=== PATIENT | female | born 1955 | race Caucasian/White ===

== ENCOUNTER 2019-02-17 13:23 | Emergency (ER) | payer OTHER ==
[~2019-02-17] VITALS: Ht 167.6 cm; Wt 112.5 kg
[~2019-02-17 13:23] MED LIST: BETAMETHASONE D TP; FLUOCINONIDE0.05% T; KETOCONAZOLE S120 M1 TP
[2019-02-17] MEDS ORDERED: NAPROSYN500 MG PO (15:15)
== END 2019-02-17 15:20 | disposition home or self-care (01) ==
LOC: ED 13:23
DX: S63.501A Unspecified sprain of right wrist, initial encounter (principal); Z79.899 Other long term (current) drug therapy; X58.XXXA Exposure to other specified factors, initial encounter; Y93.89 Activity, other specified; Y92.89 Other specified places as the place of occurrence of the external cause; Y99.8 Other external cause status

== ENCOUNTER 2023-10-22 09:50 | Emergency (ER) | payer MEDICARE, OTHER ==
[~2023-10-22] VITALS: Ht 167.6 cm; Wt 117.9 kg
[~2023-10-22 09:50] MED LIST changes: +NAPROSYN500 MG PO
[2023-10-22] MEDS ORDERED: Ketorolac Tromethamine 15 MG/ML VIAL IV ONE (10:15)
[2023-10-22] MEDS ORDERED: Dexamethasone Sodium Phospha 20 MG/5 ML VIAL IM ONE (10:15)
[2023-10-22] MEDS ORDERED: Orphenadrine C100 MG PO (11:07)
== END 2023-10-22 11:10 | disposition home or self-care (01) ==
LOC: ED 09:50
DX: M54.10 Radiculopathy, site unspecified (principal); M54.2 Cervicalgia